=== PATIENT | male | born 1985 | race Caucasian/White ===

== ENCOUNTER 2017-10-17 11:17 | Emergency (ER) | payer BC ==
[2017-10-17 11:21] VITALS: BP 153/94; PULSE 68; TEMP 98.3; BMI 34.0
--- NOTE | 2017-10-17 11:32 | PDOC ---
History of Present Illness - General Chief Complaint: Irregular Heart Beat Stated Complaint: CHEST FLUTTER Time Seen by Provider: 10/17/17 11:27 History Source: Patient (Patient walked in complaining of fluttering in the chest starting last nite before going to bed, continuing during the night, fever chills last nite) - History of Present Illness Timing/Duration: 24 hours, resolved prior to arrival Severity: mild Modifying Factors: improves with: rest Associated Symptoms: reports: fever/chills, shortness of breath Past History - Travel Traveled outside of the country in the last 30 days: No Close contact w/someone who was outside of country & ill: No - Past Medical History Allergies/Adverse Reactions: Allergies Allergy/AdvReac Type Severity Reaction Status Date / Time tree and shrub pollen Allergy Unknown Verified 10/17/17 11:19 Home Medications: Ambulatory Orders Albuterol Sulfate Inhaler - [Ventolin HFA Inhaler -] 1 - 2 inh PO QID #1 inhaler 10/17/17 Fluticasone Prop 0.05% Nasal [Flonase -] 1 - 2 spray NS PRN PRN 10/17/17 Asthma: Yes Psychiatric Problems: Yes (anxiety under care of therapist) - Family Disease History Family Disease History: Other: Mother (thyroid problem) Comment:: Mother's sister thyroid disease 10/17/17 16:42 - Suicide/Smoking/Psychosocial Hx Smoking History: Never smoked Have you smoked in the past 12 months: No Information on smoking cessation initiated: No Hx Alcohol Use: No Drug/Substance Use Hx: No Review of Systems - Review of Systems Able to Perform ROS?: Yes Is the patient limited [place]er proficient: Yes Constitutional: Yes: Malaise HEENTM: No: Symptoms Reported, See HPI, Eye Pain, Blurred Vision, Tearing, Recent change in vision, Double Vision, Cataracts, Ear Pain, Ocular Prothesis, Ear Discharge, Nose Pain, Nose Congestion, Tinnitus, Nose Bleeding, Hearing Loss , Throat Pain, Throat Swelling, Mouth Pain, Dental Problems, Difficulty Swallowing, Mouth Swelling, Other Respiratory: Yes: See HPI, Wheezing Cardiac (ROS): Yes: Symptoms Reported, See HPI, Chest Pain, Palpitations Musculoskeletal: No: Symptoms Reported, See HPI, Back Pain, Gout, Joint Pain, Joint Swelling, Muscle Pain, Muscle Weakness, Neck Pain, Joint Stiffness, Other Integumentary: No: Symptoms Reported, See HPI, Bruising, Change in Color, Change in Hair/Nails, Dryness, Erythema, Flushing, Lesions, Lumps, Pallor, Pruritus, Rash, Sweating, Other Neurological: No: Symptoms reported, See HPI, Headache, Numbness, Paresthesia, Pre-Existing Deficit, Seizure, Tingling, Tremors, Weakness, Unsteady Gait, Ataxia, Dizziness, Other All Other Systems: Reviewed and Negative *Physical Exam - Vital Signs Last Vital Signs Temp Pulse Resp BP Pulse Ox 98.3 F 68 20 153/94 98 10/17/17 11:18 10/17/17 11:18 10/17/17 11:18 10/17/17 11:18 10/17/17 11:18 - Physical Exam General Appearance: Yes: Nourished, Appropriately Dressed, Mild Distress, Obese HEENT: positive: ANALILIA Neck: positive: Supple Respiratory/Chest: positive: Normal Breath Sounds Cardiovascular: positive: Regular Rhythm, Regular Rate, S1, S2 Gastrointestinal/Abdominal: positive: Normal Bowel Sounds, Soft Lymphatic: negative: Adenopathy Musculoskeletal: positive: Normal Inspection Extremity: positive: Normal Capillary Refill, Normal Inspection, Normal Range of Motion Integumentary: positive: Normal Color, Dry Neurologic: positive: Fully Oriented, Alert, Normal Mood/Affect (Slightly anxious) ED Treatment Course - LABORATORY CBC & Chemistry Diagram: 10/17/17 12:15 10/17/17 12:14 *DC/Admit/Observation/Transfer Diagnosis at time of Disposition: Heart palpitations, Anxiety Reactive airway disease with wheezing Qualifiers: Asthma severity: mild Asthma persistence: intermittent Asthma complication type : uncomplicated Qualified Code(s): J45.20 - Mild intermittent asthma, uncomplicated - Discharge Dispostion Disposition: HOME Condition at time of disposition: Improved Admit: No - Prescriptions Prescriptions: Albuterol Sulfate Inhaler - [Ventolin HFA Inhaler -] 1 - 2 inh PO QID #1 inhaler - Referrals Referrals: Alannah Nieto MD [Staff Physician] - - Patient Instructions Printed Discharge Instructions: DI for Palpitations Additional Instructions: Follow up with your doctor, to check the Thyroid tests done here. Suggest Inhaler before and after starting exercising - Post Discharge Activity Forms/Work/School Notes: Back to Work
[2017-10-17 12:23] LABS: BASOPHIL 0.9 % (0-2.0); EOSINOPHIL 3.6 % (0-4.5); MCH 27.2 pg (25.7-33.7); MCHC 33.5 g/dl (32.0-35.9); MEAN CELL VOLUME 81.2 fl (80-96); NEUTROPHILS 58.1 % (42.8-82.8); RDW 11.9 % (11.9-15.9); WHITE BLOOD COUNT 4.8 K/mm3 (4.0-10.8)
[2017-10-17 12:35] LABS: PLATELET COUNT 303 K/MM3 (134-434)
[2017-10-17 12:38] LABS: MAGNESIUM 1.8 mg/dL (1.8-2.4)
[2017-10-17 13:35] LABS: ALK PHOS 49 U/L (32-92); ANION GAP 7 (8-16); BILIRUBIN,TOTAL 0.7 mg/dl (0.2-1.0); CALCIUM 9.5 mg/dl (8.4-10.2); CO2 23 mmol/L (22-28); CREATININE 0.9 mg/dl (0.6-1.3); GLUCOSE,RANDOM 93 mg/dl (74-106); SGOT/AST 23 U/L (10-42); SGPT/ALT 56 U/L (10-40); TOT PROT 7.5 g/dl (6.4-8.3)
[2017-10-17] MEDS ORDERED: ALBUTEROL SO4 2.5/IPRATROPIUM 0.5 INH SOL 3 ML VIAL.NEB. NEB ONE ×2 (14:21→14:37)
[2017-10-17 15:36] LABS: THYROID STIMULATING HORMONE 2.34 uIU/ml (0.358-3.74)
--- NOTE | 2017-10-17 18:52 | EKG ---
Test Reason : Blood Pressure : / mmHG Vent. Rate : 059 BPM Atrial Rate : 059 BPM P-R Int : 154 ms QRS Dur : 090 ms QT Int : 392 ms P-R-T Axes : -08 040 021 degrees QTc Int : 388 ms SINUS BRADYCARDIA OTHERWISE NORMAL ECG NO PREVIOUS ECGS AVAILABLE Confirmed by HERIBERTO VYAS MD ([id number]) on 10/17/2017 6:51:39 PM Referred By: DR STEVEN Confirmed By:HERIBERTO VYAS MD
== END 2017-10-17 14:56 | disposition home or self-care (01) ==
LOC: FER 11:17
PROC: 3E0F7GC Introduction of Other Therapeutic Substance into Respiratory Tract, Via Natural or Artificial Opening (ICD-10-PCS; principal; 2017-10-17)
DX: F41.9 Anxiety disorder, unspecified (principal); J45.20 Mild intermittent asthma, uncomplicated; R00.2 Palpitations; I49.8 Other specified cardiac arrhythmias
CPT/HCPCS: 36415; 80053; 83735; 84443; 84484; 85025; 93005; 99282-25

== ENCOUNTER 2019-07-13 13:30 | Emergency (ER) | payer BC ==
[2019-07-13 14:07] VITALS: BP 143/92; PULSE 73; TEMP 98; BMI 32.5
[2019-07-13] MEDS ORDERED: IBUPROFEN 600 MG TABLET (FP) PO ONE ×2 (15:37→16:39)
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
== END 2019-07-13 17:05 | disposition home or self-care (01) ==
LOC: FER 13:30
DX: T14.8XXA Other injury of unspecified body region, initial encounter (principal); X58.XXXA Exposure to other specified factors, initial encounter; Y93.89 Activity, other specified; Y92.89 Other specified places as the place of occurrence of the external cause
CPT/HCPCS: 76882-TC-RT-FY; 99282-25